=== PATIENT | male | born 1990 | race Caucasian/White ===

== ENCOUNTER 2016-03-30 07:27 | Emergency (ER) | payer OTHER ==
--- NOTE | 2016-03-30 07:40 | UCPHY ---
H & P Time Seen by Provider: 03/30/16 07:39 Patient Type: New HPI/ROS: 26-year-old male presents complaining of difficulty extending his fingers on his right hand. Approximately 1 week ago he had a long day of shoveling and using a pick axe, initially it was sore, but now he is noticing it is difficult to extend his fingers unless he holds his wrist in a flexed position. Review of systems General no fever no chills no weakness HEENT no eye pain no eye discharge. No eye redness, no sore throat Respiratory no cough, no shortness of breath Cardiac no chest pain, no peripheral edema GI no abdominal pain, no diarrhea, no constipation, no nausea, no vomiting no flank pain, no hematuria, no dysuria Musculoskeletal no myalgias, no joint pain Heme no easy bruising, no easy bleeding Endo no polyuria, no polydipsia Skin no rashes, no pruritus Neuro no syncope, no dizziness, no headaches, positive motor weakness Psych is no suicidal ideation, no homicidal ideation Past Medical/Surgical History: Noncontributory Social History: Denies alcohol or drug use Smoking Status: Never smoked Physical Exam: Alert and oriented in no acute distress nontoxic appearance, afebrile Atraumatic normocephalic Neck no JVD Lungs clear to auscultation, no respiratory distress Heart regular rate and rhythm Extremities no cyanosis clubbing edema Right arm-full range of motion at shoulder, elbow, wrist Strong food and beverage lead Unable to extend fingers and wrist is flexed at 90 No sensory deficit Mild tenderness to palpation at right proximal lateral forearm, no ecchymosis no crepitus Compartments are all soft Radial, ulnar, brachial artery with strong pulses, good capillary refill No discoloration to arm or hand Constitutional: Initial Vital Signs Temperature (C) 36.6 C 03/30/16 07:38 Heart Rate 88 03/30/16 07:38 Respiratory Rate 18 03/30/16 07:38 Blood Pressure 149/90 H 03/30/16 07:38 O2 Sat (%) 97 03/30/16 07:38 O2 Delivery Mode Room Air Allergies/Adverse Reactions: No Known Allergies Allergy (Unverified 12/12/15 20:45) Home Medications: Medication Instructions Recorded NK [No Known Home Meds] 03/30/16 Medical Decision Making ED Course/Re-evaluation: Patient seen and evaluated for right hand weakness. Patient had a repetitive/overuse injury approximately 1 week ago, symptoms developed a few days after overuse injury Physical exam significant for weakness in finger extensors No evidence for compartment syndrome Differential diagnosis Ulnar neuropathy at elbow, ulnar neuropathy at rest, radial or median nerve neuropathy Impression Posterior interosseous mono neuropathy right sided Plan Rest, ice Follow up with Orthopedics if not improving Given note for work for light duty Departure - Departure Disposition: Home, Routine, Self-Care Clinical Impression: Posterior interosseous mononeuropathy Condition: Good Instructions: Cubital Tunnel Syndrome (ED) Additional Instructions: Your symptoms are from compression of the interosseus nerve , a branch of the radial nerve that runs through the proximal forearm caused from overuse injuries. Rest that area, ice to the area, follow up with orthopedics hand if not improving. Your injury, weakness, were caused from work, approximately one week ago when you had a long day of shoveling and using a pick axe, these caused swelling, hypertrophy of the proximal forearm muscle which then compressed a branch of the radial nerve, it is likely with rest of this area it will gradually return to normal over the next 2-3 weeks. If it is not getting dramatically better in 2-3 weeks, it will require a specialist to do EMG studies and potentially require surgery. You need complete rest of the right forearm muscle, wrist and hand until there are signs of marked improvement. Referrals: NONE *PRIMARY CARE P,. [Primary Care Provider] - As per Instructions Stand Alone Forms: Work Limited Duty - PQRS PQRS Measurement: na
[2016-03-30 08:07] VITALS: BP 149/90; PULSE 88; RESP 18; TEMP 98; O2SAT 97
== END 2016-03-30 08:31 | disposition home or self-care (01) ==
LOC: CED 07:27
DX: G56.01 Carpal tunnel syndrome, right upper limb (principal)
CPT/HCPCS: 99213-PO; G0463-PO